=== PATIENT | female | born 1945 | race Caucasian/White ===

== ENCOUNTER 2018-12-16 14:01 | Emergency (ER) | payer MEDICARE, MEDICAID ==
[~2018-12-16] VITALS: Ht 157.5 cm; Wt 70.5 kg
[2018-12-16 14:03] VITALS: BP 163/78
--- NOTE | 2018-12-16 14:28 | NUR ---
Jannie clemente in [facility] - 12/16/18 at 1449 by CHANNING PT RETURNED FROM XRAY
[2018-12-16] MEDS ORDERED: HYDROcodone/APAP 5/325 TABLET PO ONE (14:30)
[2018-12-16] MEDS ORDERED: PLEASE ENTER ALLERGIES MC SCH (14:30)
[2018-12-16] MEDS ORDERED: PLEASE ENTER HEIGHT AND WEIGHT MC SCH (14:30)
[2018-12-16] MEDS ORDERED: HYDROcodone/APAP 5/325 TABLET ONE (14:46)
--- NOTE | 2018-12-16 14:49 | NUR ---
PT RETURNED FROM XRAY
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
--- NOTE | 2018-12-16 16:01 | NUR ---
CIRCUS CIRCUS FULL, PT AND SET UP IN [place] WITH FOOD AND BLANKETS UNTIL FAMILY ARRIVES
== END 2018-12-16 15:59 | disposition home or self-care (01) ==
LOC: ED 15:53
DX: S20.219A Contusion of unspecified front wall of thorax, initial encounter (principal); I10 Essential (primary) hypertension; E78.00 Pure hypercholesterolemia, unspecified; Z87.891 Personal history of nicotine dependence; V49.59XA Passenger injured in collision with other motor vehicles in traffic accident, initial encounter; Y93.89 Activity, other specified; Y92.89 Other specified places as the place of occurrence of the external cause; Y99.8 Other external cause status
CPT/HCPCS: 71046; 93005; 99283